=== PATIENT | male | born 1990 | race Caucasian/White ===

== ENCOUNTER 2017-06-13 23:10 | Emergency (ER) | payer SELFPAY ==
[~2017-06-13] VITALS: Ht 170.1 cm; Wt 68.0 kg
[~2017-06-13 23:10] MED LIST: ANUSOL-HC2.5% RC; KEFLEX500 MG PO; MIRALAX POWDER255 GM PO; TRAMADOL HCL50 MG PO
[2017-06-13] MEDS ORDERED: CEPHALEXIN500 M1 PO (23:26)
== END 2017-06-13 23:32 | disposition home or self-care (01) ==
LOC: ED 23:10
DX: L03.114 Cellulitis of left upper limb (principal); Z88.1 Allergy status to other antibiotic agents; Z91.040 Latex allergy status; Z88.6 Allergy status to analgesic agent; Z91.018 Allergy to other foods; Z88.2 Allergy status to sulfonamides

== ENCOUNTER 2018-05-08 09:13 | Emergency (ER) | payer SELFPAY ==
[~2018-05-08] VITALS: Ht 172.7 cm; Wt 68.0 kg
[~2018-05-08 09:13] MED LIST changes: +CEPHALEXIN500 M1 PO
[2018-05-08] MEDS ORDERED: NAPROSYN500 MG PO (09:19)
== END 2018-05-08 10:29 | disposition home or self-care (01) ==
LOC: ED 09:13
DX: S93.402A Sprain of unspecified ligament of left ankle, initial encounter (principal); R03.0 Elevated blood-pressure reading, without diagnosis of hypertension; Z88.2 Allergy status to sulfonamides; Z88.1 Allergy status to other antibiotic agents; Z91.018 Allergy to other foods; W17.2XXA Fall into hole, initial encounter; Y93.89 Activity, other specified; Y92.89 Other specified places as the place of occurrence of the external cause; Y99.8 Other external cause status

== ENCOUNTER 2018-08-06 21:08 | Emergency (ER) | payer SELFPAY ==
[~2018-08-06] VITALS: Ht 175.2 cm; Wt 68.0 kg
[~2018-08-06 21:08] MED LIST changes: +NAPROSYN500 MG PO
== END 2018-08-06 22:56 | disposition home or self-care (01) ==
LOC: ED 21:08
DX: S01.112A Laceration without foreign body of left eyelid and periocular area, initial encounter (principal); Z88.2 Allergy status to sulfonamides; Z88.1 Allergy status to other antibiotic agents; Z91.040 Latex allergy status; W20.8XXA Other cause of strike by thrown, projected or falling object, initial encounter; Y93.89 Activity, other specified; Y92.89 Other specified places as the place of occurrence of the external cause; Y99.8 Other external cause status

== ENCOUNTER 2018-10-14 18:16 | Emergency (ER) | payer SELFPAY ==
[~2018-10-14] VITALS: Ht 175.2 cm; Wt 65.8 kg
== END 2018-10-14 19:10 | disposition home or self-care (01) ==
LOC: ED 18:16
DX: S00.412A Abrasion of left ear, initial encounter (principal); Z88.2 Allergy status to sulfonamides; Z88.1 Allergy status to other antibiotic agents; Z91.040 Latex allergy status; Z88.6 Allergy status to analgesic agent; Z91.018 Allergy to other foods; X58.XXXA Exposure to other specified factors, initial encounter; Y93.89 Activity, other specified; Y92.89 Other specified places as the place of occurrence of the external cause; Y99.8 Other external cause status

== ENCOUNTER → 2019-07-09 | Outpatient (CLI) | payer OTHER ==
[2019-07-09 11:04] LABS: URINE AMPHETAMINES < 1000 (1000ng/ml); URINE BARBITURATES < 200 (200ng/ml); URINE BENZODIAZEPINES < 200 (200ng/ml); URINE CANNABINOIDS (THC) < 50 (50ng/ml); URINE COCAINE < 300 (300ng/ml); URINE METHADONE < 300 (300ng/ml); URINE OPIATES < 300 (300ng/ml)
[2019-07-09 11:06] LABS: URINE PHENCYCLIDINE < 25 (25ng/ml)
[2019-07-09 11:08] LABS: BASO % 0.6 % (0.0-1.0); EOS # 0.1 10*3/uL (0.0-0.4); EOS % 2.8 % (1.0-4.0); HEMATOCRIT 43.8 % (42.0-52.0); HEMOGLOBIN 14.7 g/dl (14.0-18.0); LYMPH # 1.7 10*3/uL (1.3-4.4); LYMPH % 33.6 % (27.0-41.0); MEAN CORPUSCULAR HGB 31.5 pg (27.0-31.0); MEAN CORPUSCULAR HGB CONC 33.6 g/dl (33.0-37.0); MEAN PLATELET VOLUME 10.9 fl (9.6-12.3); MONO # 0.6 10*3/uL (0.1-1.0); MONO % 10.9 % (3.0-9.0); NEUT # 2.6 10*3/uL (2.3-7.9); NEUT % 51.9 % (47.0-73.0); PLATELET COUNT AUTOMATED 241 10*3/uL (130-400); RED BLOOD COUNT 4.66 10*6/uL (4.50-5.90); WHITE BLOOD COUNT 5.1 10*3/uL (4.8-10.8)
[2019-07-09 11:23] LABS: BUN 22 mg/dl (7-24); CHLORIDE 106 mmol/L (98-107); CREATININE 1.08 mg/dL (0.70-1.30); POTASSIUM 3.5 mmol/L (3.5-5.1); SGOT/AST 15 IU/L (3-35); SGPT/ALT 40 U/L (12-78); SODIUM 141 mmol/L (136-145); TOTAL PROTEIN 7.2 gm/dL (6.4-8.2)
[2019-07-09 11:33] LABS: ALKALINE PHOSPHATASE 93 U/L (45-117)
[2019-07-09 11:55] LABS: VITAMIN D, 25-HYDROXY 34.7 ng/mL (30-100)
[2019-07-10 08:08] LABS: HEPATITIS B SURFACE AG Negative (Negative); HEPATITIS C VIRUS ANTIBODY >11.0 s/co (0.0-0.9)
== END | disposition home or self-care (01) ==
LOC: LAB 10:30
PROVIDERS: Physician Assistant
DX: Z79.899 Other long term (current) drug therapy (principal)

== ENCOUNTER → 2020-11-27 | Outpatient (CLI) | payer OTHER | END | disposition home or self-care (01) | LOC: COVID19 11:19 | PROVIDERS: ATTEND Student in an Organized Health Care Education/Training Program | DX: Z20.828 Contact with and (suspected) exposure to other viral communicable diseases (principal) ==

== ENCOUNTER → 2020-12-25 | Outpatient (CLI) | payer OTHER | END | disposition home or self-care (01) | LOC: COVID19 11:25 | PROVIDERS: ATTEND Internal Medicine | DX: Z20.822 Contact with and (suspected) exposure to COVID-19 (principal) ==

== ENCOUNTER → 2023-09-20 | Outpatient (CLI) | payer OTHER | END | disposition home or self-care (01) | LOC: LAB 10:05 | PROVIDERS: ATTEND Family Medicine | DX: R79.89 Other specified abnormal findings of blood chemistry (principal) ==

== ENCOUNTER 2024-01-22 16:20 | Emergency (ER) | payer OTHER ==
[~2024-01-22] VITALS: Ht 175.2 cm; Wt 72.6 kg
[2024-01-22] MEDS ORDERED: OMNICEF300 MG PO (16:36)
== END 2024-01-22 16:42 | disposition home or self-care (01) ==
LOC: ED 16:20
DX: H66.91 Otitis media, unspecified, right ear (principal); M54.2 Cervicalgia; G43.909 Migraine, unspecified, not intractable, without status migrainosus; Z88.2 Allergy status to sulfonamides; Z88.1 Allergy status to other antibiotic agents; Z91.018 Allergy to other foods